=== PATIENT | female | born 1975 | race Hispanic/Latino ===

== ENCOUNTER 2024-07-31 21:27 | Emergency (ER) | payer OTHER ==
[~2024-07-31] VITALS: Ht 157.5 cm; Wt 88.5 kg
[2024-07-31] MEDS: SODIUM CHLORIDE 0.9% 1000ML 1,000 ML IV STA (21:50)
[2024-07-31 22:05] LABS: BASOPHILS % 0.5 % (0.0-1.0); EOSINOPHILS # (AUTO) 0.2 (0.0-0.4); EOSINOPHILS % 2.3 % (0.0-6.0); HEMATOCRIT 37.4 % (34.2-44.1); LYMPHOCYTES # (AUTO) 2.3 (1.0-3.2); LYMPHOCYTES % 29.4 % (18.0-39.1); MEAN CORPUSCULAR HEMOGLOBIN 28.5 pg (28-32); MEAN CORPUSCULAR HGB CONC 32.1 g/dL (31-35); MEAN CORPUSCULAR VOLUME 88.8 fL (81-99); MONOCYTES # (AUTO) 0.6 (0.2-0.8); MONOCYTES % 7.9 % (4.4-11.3); NEUTROPHILS # (AUTO) 4.8 (2.1-6.9); NEUTROPHILS % 59.6 % (38.7-80.0); PLATELET COUNT 267 x10e3/uL (140-360); RED BLOOD COUNT 4.21 x10e6/uL (3.6-5.1); RED CELL DISTRIBUTION WIDTH 15.2 % (11.7-14.4); WHITE BLOOD COUNT 7.97 x10e3/uL (4.8-10.8)
[2024-07-31 22:10] LABS: INR 0.93
[2024-07-31 22:18] LABS: ALANINE AMINOTRANSFERASE 16 IU/L (0-55); ALBUMIN 3.9 g/dL (3.5-5.0); ALBUMIN/GLOBULIN RATIO 1.1 (0.8-2.0); ALKALINE PHOSPHATASE 87 IU/L (40-150); BILIRUBIN,TOTAL 0.3 mg/dL (0.2-1.2); BLOOD UREA NITROGEN 12 mg/dL (7-26); BUN/CREATININE RATIO 18 (6-25); CALCIUM 9.4 mg/dL (8.4-10.2); CARBON DIOXIDE 23 mmol/L (22-29); CHLORIDE 104 mmol/L (98-107); CREATINE KINASE 81 IU/L (29-168); CREATININE, SERUM 0.67 mg/dL (0.57-1.11); EST GLOMERULAR FILTRATION RATE 108 ML/MIN (>=60); GLUCOSE 108 mg/dL (74-118); LIPASE 25 U/L (8-78); SODIUM 138 mmol/L (136-145); TOTAL PROTEIN 7.6 g/dL (6.5-8.1)
[2024-07-31 22:24] LABS: TROPONIN I < 0.001 ng/mL (0-0.300)
[2024-07-31] MEDS: MECLIZINE HCL 12.5 MG TAB PO STA (23:28)
[2024-07-31 23:38] LABS: BILIRUBIN,URINE NEGATIVE (NEGATIVE); CLARITY,URINE CLOUDY (CLEAR); GLUCOSE, URINE NEGATIVE (NEGATIVE); KETONES,URINE NEGATIVE (NEGATIVE); LEUKOCYTE ESTERASE ,URINE NEGATIVE (NEGATIVE); NITRITE,URINE NEGATIVE (NEGATIVE); PH,URINE 5.5 (5 - 7); PROTEIN,URINE DIPSTICK NEGATIVE (NEGATIVE); URINE UROBILINOGEN 0.2 mg/dL (0.2 - 1)
[2024-07-31 23:39] LABS: COLOR,URINE STRAW (YELLOW)
[2024-07-31] MEDS ORDERED: MECLIZINE HCL 12.5 MG TAB ONE (23:58)
[2024-08-01 00:09] LABS: RBC,URINE >50 /HPF (0-5)
[2024-08-01 00:10] LABS: BACTERIA,URINE MODERATE /HPF; EPITHELIAL CELLS,URINE MODERATE /LPF; RENAL EPITHELIAL CELLS,URINE FEW
[2024-08-01] MEDS: DIAZEPAM INJ 5 MG/ML 2 ML IV STA (01:40)
[2024-08-01] MEDS ORDERED: MECLIZINE HCL25 MG PO (03:32)
[2024-08-01 03:36] VITALS: PULSE 66; RESP 18; TEMP 98.7; O2SAT 98
[2024-08-01] MEDS ORDERED: IOPAMIDOL 370 MG/ML 100 ML INFUS..BTL INJ ONE (05:34)
== END 2024-08-01 03:50 | disposition home or self-care (01) ==
LOC: ER 21:32
DX: R42 Dizziness and giddiness (principal); E78.5 Hyperlipidemia, unspecified
CPT/HCPCS: 36415; 70496; 70498; 71045; 80053; 81001; 81025; 82550; 83690; 83880; 84484; 85025; 85610; 93005; 99284; J3360; J7030; J8597; Q9967